=== PATIENT | male | born 1970 | race African-American/Black ===

== ENCOUNTER 2023-05-07 08:10 | Emergency (ER) | payer MEDICAID ==
[~2023-05-07] VITALS: Ht 177.8 cm; Wt 76.0 kg
[2023-05-07 08:15] VITALS: TEMP 97.9; O2SAT 100
[2023-05-07] MEDS ORDERED: CEPH500T MT (08:34)
[2023-05-07] MEDS ORDERED: IBUP-2029 MT (08:34)
[2023-05-07] MEDS ORDERED: MUPI1OIN4 TP (08:44)
[2023-05-07 08:45] VITALS: BP 139/74; PULSE 89; RESP 14
[2023-05-07] MEDS ORDERED: IBUPROFEN 600MG TABLET PO ONE (08:45)
== END 2023-05-07 09:06 | disposition home or self-care (01) ==
LOC: ER 08:10
DX: J34.0 Abscess, furuncle and carbuncle of nose (principal)
CPT/HCPCS: 99283

== ENCOUNTER 2024-04-28 08:20 | Emergency (ER) | payer MEDICAID ==
[~2024-04-28] VITALS: Ht 180.3 cm; Wt 75.0 kg
[~2024-04-28 08:20] MED LIST: CEPH500T MT; IBUP-2029 MT; MUPI1OIN4 TP
[2024-04-28 08:25] VITALS: O2SAT 100
[2024-04-28 09:25] VITALS: BP 118/66; PULSE 75; RESP 16; TEMP 98
== END 2024-04-28 09:25 | disposition home or self-care (01) ==
LOC: ER 08:20
DX: R05.9 Cough, unspecified (principal); R09.81 Nasal congestion; R09.89 Other specified symptoms and signs involving the circulatory and respiratory systems
CPT/HCPCS: 71045; 99283